=== PATIENT | female | born 1990 ===

== ENCOUNTER 2018-07-25 15:34 | Emergency (ER) | payer OTHER ==
[2018-07-25 15:42] VITALS: BMI 30.1
[2018-07-25 15:43] VITALS: TEMP 98.4; O2SAT 99
[2018-07-25] MEDS ORDERED: Sodium Chloride 0.9% 1,000 ML IV STA (15:53)
--- NOTE | 2018-07-25 15:56 | ED PDOC ---
Arrival/HPI - General Chief Complaint: Abdominal Pain Time Seen by Provider: 07/25/18 15:47 Historian: Patient - History of Present Illness Narrative History of Present Illness (Text): 07/25/18 16:01 27 y/o female with no significant PMH presents to the ED c/o right sided abdominal pain x 2 days. Pain is sharp, constant, located to RUQ and RLQ. Associated 2 episodes of nonbilious, nonbloody emesis. Pt has been taking excedrin for her symptoms, last dose 7am. LMP 2 weeks ago. Denies fever, chills, hematemesis, diarrhea, constipation, saddle anesthesia, incontinence, urinary complaints, vaginal bleeding/discharge/odor, or any other associated complaints. Past Medical History - Provider Review Nursing Documentation Reviewed: Yes - Infectious Disease Hx of Infectious Diseases: None - Reproductive Menopause: No - Psychiatric Hx Substance Use: No - Anesthesia Hx Anesthesia: No Family/Social History - Physician Review Nursing Documentation Reviewed: Yes Family/Social History: No Known Family HX Smoking Status: Former Smoker Hx Alcohol Use: No Hx Substance Use: No Allergies/Home Meds Allergies/Adverse Reactions: Allergies No Known Allergies Allergy (Verified 07/25/18 15:50) Review of Systems - Review of Systems Constitutional: Normal. absent: Fevers Eyes: Normal. absent: Vision Changes ENT: Normal. absent: Sore Throat, Sinus Congestion Respiratory: Normal. absent: SOB, Cough Cardiovascular: Normal. absent: Chest Pain, Palpitations, Syncope Gastrointestinal: Abdominal Pain, Nausea, Vomiting. absent: Stool Changes, Constipation, Diarrhea, Appetite Changes Genitourinary Female: Normal. absent: Dysuria, Frequency, Vaginal Bleeding, Vaginal Discharge Musculoskeletal: Back Pain. absent: Neck Pain Skin: Normal. absent: Rash Neurological: Normal. absent: Headache, Dizziness Physical Exam Vital Signs Reviewed: Yes Vital Signs Temp Pulse Resp BP Pulse Ox 07/25/18 15:42 98.4 F 90 19 142/92 H 99 Temperature: Afebrile Blood Pressure: Hypertensive Pulse: Regular Respiratory Rate: Normal Appearance: Positive for: Well-Appearing, Non-Toxic, Comfortable Pain Distress: None Mental Status: Positive for: Alert and Oriented X 3 - Systems Exam Head: Present: Atraumatic, Normocephalic Extroacular Muscles: Present: EOMI Conjunctiva: Present: Normal Mouth: Present: Moist Mucous Membranes Neck: Present: Normal Range of Motion. No: Meningeal Signs Respiratory/Chest: Present: Clear to Auscultation, Good Air Exchange. No: Respiratory Distress, Accessory Muscle Use Cardiovascular: Present: Regular Rate and Rhythm, Normal S1, S2, Peripheal Pulses Present Abdomen: Present: Tenderness (RUQ, RLQ), Normal Bowel Sounds, Guarding (RUQ), Other ((+) [place] sign). No: Distention, Peritoneal Signs Back: Present: Normal Inspection. No: CVA Tenderness Upper Extremity: Present: Normal Inspection, Normal ROM, NORMAL PULSES, Neurovascularly Intact, Capillary Refill < 2s. No: Cyanosis, Edema, Temperature Abnormalties Lower Extremity: Present: Normal Inspection, NORMAL PULSES, Normal ROM, Neurovascularly Intact, Capillary Refill < 2 s. No: Temperature Abnormalties Neurological: Present: GCS=15, CN II-XII Intact, Speech Normal, Motor Func Grossly Intact, Normal Sensory Function, Gait Normal Skin: Present: Warm, Dry, Normal Color. No: Rashes Psychiatric: Present: Alert, Oriented x 3, Normal Insight, Normal Concentration, Normal Affect, Normal Mood Medical Decision Making ED Course and Treatment: 07/25/18 16:00 Initial Plan: * CBC, CMP * Coags * Mg * Lipase * UA * CT Abd/Pelvis * RUQ US * Transvaginal US * IVF * Toradol * Zofran DDx: Gallbladder disease, Appendicitis, Ovarian Torsion, UTI, Ovarian Cyst Bloodwork reviewed. Mild leukocytosis at 12.5. Otherwise unremarkable. Normal LFTs, normal bilirubin. Urine unremarkable Lipase normal US show right ovarian cyst, fatty liver, and cholelithiasis CT shows cholelithiasis. Patient reports significant improvement in symptoms with medication Case and diagnostic testing results discussed with ED attending Dr. Davis who recommends discharge home with general surgery followup. Advised PMD, BREAST PULLER, and General Surgery followup. Diagnostic testing results and plan of care discussed with patient. Strict instructions given regarding prescription use, importance of followup, and signs/symptoms to return to ER including worsening pain, fever, intractable vomiting, or any other new/worsening symptoms. Pt verbalized understanding of discussion. Patient is A&Ox3, ambulating with steady gait, with vital signs stable for discharge. - Lab Interpretations Lab Results: 07/25/18 16:20 07/25/18 16:20 Lab Results 07/25/18 16:20: Sodium 139, Potassium 3.6, Chloride 106, Carbon Dioxide 25, Anion Gap 11, BUN 15, Creatinine 0.6 L, Est GFR ( Amer) > 60, Est GFR (Non-Af Amer) > 60, Random Glucose 85, Calcium 9.2, Magnesium 1.8, Total Bilirubin 0.3, AST 23, ALT 23, Alkaline Phosphatase 55, Total Protein 7.0, Albumin 4.2, Globulin 2.8, Albumin/Globulin Ratio 1.5, Lipase 117 07/25/18 16:20: Urine Color Yellow, Urine Appearance Slight-cloudy, Urine pH 7.0, Ur Specific Rankin 1.020, Urine Protein Trace H, Urine Glucose (UA) Negative, Urine Ketones Negative, Urine Blood Small H, Urine Nitrate Negative, Urine Bilirubin Negative, Urine Urobilinogen 0.2, Ur Leukocyte Esterase Negative, Urine RBC 1 - 3 H, Urine WBC None, Ur Epithelial Cells 0 - 2, Amorphous Sediment Few 07/25/18 16:20: PT 12.0, INR 1.08, APTT 33.6 07/25/18 16:20: WBC 12.5 H, RBC 5.02, Hgb 15.0, Hct 44.1, MCV 87.8, MCH 29.9, MCHC 34.0, RDW 12.8, Plt Count 279, MPV 9.6, Neut % (Auto) 69.2 H, Lymph % (Auto) 17.4 L, [place] % (Auto) 7.0 H, Eos % (Auto) 6.1 H, Baso % (Auto) 0.3, Lymph # (Auto) 2.2, [place] # (Auto) 0.9 H, Eos # (Auto) 0.8 H, Baso # (Auto) 0.04, Absolute Neuts (auto) 8.65 H I have reviewed the lab results: Yes - RAD Interpretation Narrative RAD Interpretations (Text): 07/25/18 17:55 Transvaginal US: FINDINGS: UTERUS: Measures 8.9 x 4.3 x 5.9 cm. Normal in size and appearance. No fibroid or other mass lesion seen. ENDOMETRIUM: Measures 16 mm in diameter. Unremarkable. CERVIX: No cervical abnormality identified. RIGHT OVARY: Measures 3.6 x 3.4 x 3.4 cm. No solid mass. Normal flow. Simple cyst, 1.6 x 1.8 x 1.9 cm. LEFT OVARY: Measures 1.6 x 2.6 x 2.8 cm. No solid mass. Normal flow. FREE FLUID: There is free fluid noted in the cul-de-sac. OTHER FINDINGS: None. IMPRESSION: 1.9 cm right ovarian cyst presumed physiologic. Small amount of fluid in the cul-de-sac common nonspecific. No additional abnormality. Abdominal US: FINDINGS: LIVER: Measures 17.4 cm. Diffusely increased echogenicity of the liver parenchyma. Consistent with fatty infiltration. No mass. No biliary ductal dilatation. GALLBLADDER: Cholelithiasis. No mural thickening. No pericholecystic fluid. Negative sonographic Reese sign. COMMON BILE DUCT: Measures 6 mm. No stones. No dilatation. PANCREAS: Poorly visualized. RIGHT KIDNEY: Measures 11.1cm. Normal echogenicity. No calculus, mass, or hydronephrosis. LEFT KIDNEY: Measures 11.6cm. Normal echogenicity. No calculus, mass, or hydronephrosis. SPLEEN: Normal in size and contour. No mass. AORTA: No aneurysmal dilatation. IVC: Unremarkable. OTHER FINDINGS: None. IMPRESSION: Cholelithiasis without sonographic evidence of cholecystitis. Fatty infiltration of the liver. CT Abd/Pelvis: FINDINGS: LUNG BASES: The lung bases appear clear. No pleural effusions are seen. LIVER: Unremarkable. GALLBLADDER AND BILE DUCTS: Suggestion of small gallstones in the gallbladder. No gallbladder wall thickening or pericholecystic fluid. PANCREAS: Unremarkable. SPLEEN: Unremarkable. ADRENAL GLANDS: Unremarkable. KIDNEYS, URETERS, AND BLADDER: The kidneys appear within normal limits. There is no hydronephrosis or hydroureter. No urinary calculi are seen. STOMACH AND BOWEL: Unremarkable appearance of the stomach and bowel. No evidence of bowel obstruction. No evidence suggesting enteritis or colitis. APPENDIX: No evidence of acute appendicitis on CT examination. PERITONEUM: No free fluid. No free air. LYMPH NODES: No lymphadenopathy is evident. REPRODUCTIVE: Uterus within normal limits. Right ovarian cyst measuring 3.1 x 2 cm suspected. VASCULATURE: No evidence of abdominal aortic aneurysm. BONES: No aggressive appearing osseous lesion. No acute osseous pathology evident. IMPRESSION: No acute intra-abdominal or pelvic abnormality. Small gallstones suggested. R ight ovarian cyst measuring 3.1 x 2 cm. No suspicious mass or lymphadenopathy. Clinical correlation advised. Electronically signed on July 25, 2018 6:25:10 PM EDT by: Tyler Mac M.D., Certified by [facility], Diagnostic Radiology Summer Internship: Radiologist Disposition/Present on Arrival - Present on Arrival Any Indicators Present on Arrival: No History of DVT/PE: No History of Uncontrolled Diabetes: No Urinary Catheter: No History of Decub. Ulcer: No History Surgical Site Infection Following: None - Disposition Have Diagnosis and Disposition been Completed?: Yes Diagnosis: Biliary colic Disposition: HOME/ ROUTINE Disposition Time: 18:30 Patient Plan: Discharge Condition: IMPROVED Discharge Instructions (ExitCare): Gallstones Additional Instructions: Ibuprofen every 8 hours as needed for pain, take with food Zofran every 8 hours as needed for nausea Increase fluids Rest, no strenuous activity Followup with general surgery within 2 days Followup with gynecology within 2 days Followup with primary within 2 days Return to ER with any new/worsening symptoms Prescriptions: Ibuprofen [Motrin Tab] 600 mg PO Q8 PRN #30 tab PRN Reason: Pain, Moderate (4-7) Ondansetron ODT [Zofran ODT] 4 mg PO Q8 #9 odt Referrals: [facility] [place] [Outside] - [facility] with [facility] [Outside] - Follow up with primary Jonnie Thompson MD [Staff Provider] - Follow up with primary Sebastian Andrews MD [Medical Doctor] - Follow up with primary Shelly Griffith MD [Medical Doctor] - Follow up with primary Forms: [facility] (Uzbek), WORK NOTE
[2018-07-25 17:11] LABS: BASO # 0.04 K/mm3 (0.0-2.0); BASO % 0.3 % (0.0-3.0); EOS # 0.8 (0.0-0.7); EOS % 6.1 % (1.5-5.0); LYMPH # 2.2 (1.2-3.4); LYMPH % 17.4 % (22.0-35.0); MEAN CELL VOLUME 87.8 fl (80.0-105.0); MEAN CORPUSCULAR HEMOGLOBIN 29.9 pg (25.0-35.0); MEAN PLATELET VOLUME 9.6 fl (7.0-11.0); MONO # 0.9 (0.1-0.6); RBC 5.02 10^6/uL (3.5-6.1); RED CELL DISTRIBUTION WIDTH 12.8 % (11.5-14.5); WHITE BLOOD COUNT 12.5 10^3/uL (4.5-11.0)
[2018-07-25 17:13] LABS: URINE BILIRUBIN NEGATIVE (NEGATIVE); URINE BLOOD SMALL (NEGATIVE); URINE GLUCOSE (UA) NEGATIVE (NEGATIVE); URINE LEUKOCYTE ESTERASE NEGATIVE Leu/uL (NEGATIVE); URINE PROTEIN TRACE mg/dL (<30 mg/dL); URINE UROBILINOGEN 0.2 E.U./dL (<1 E.U./dL)
[2018-07-25 17:15] LABS: URINE APPEARANCE SLIGHT-CLOUDY (CLEAR); URINE COLOR YELLOW (YELLOW)
[2018-07-25 17:19] LABS: INR 1.08; PARTIAL THROMBOPLASTIN TIME 33.6 Seconds (26.9-38.3)
[2018-07-25 17:20] LABS: ALB/GLOB RATIO 1.5 (1.1-1.8); ALBUMIN 4.2 g/dL (3.0-4.8); ALT/SGPT 23 U/L (7-56); AST/SGOT 23 U/L (14-36); BLOOD UREA NITROGEN 15 mg/dL (7-21); CALCIUM 9.2 mg/dL (8.4-10.5); GFR NON-AFRICAN AMERICAN > 60; LIPASE 117 U/L (23-300); URINE AMORPHOUS SEDIMENT FEW /hpf; URINE EPITHELIAL CELLS 0 - 2 /hpf (0-5)
[2018-07-25] MEDS ORDERED: Iohexol 350 MG/100 ML VIAL ONE (17:37)
--- NOTE | 2018-07-25 17:53 | US ---
Date of service: 07/25/2018 HISTORY: RLQ pain, back pain, r/o torsion COMPARISON: None available. TECHNIQUE: Transabdominal and transvaginal FINDINGS: UTERUS: Measures 8.9 x 4.3 x 5.9 cm. Normal in size and appearance. No fibroid or other mass lesion seen. ENDOMETRIUM: Measures 16 mm in diameter. Unremarkable. CERVIX: No cervical abnormality identified. RIGHT OVARY: Measures 3.6 x 3.4 x 3.4 cm. No solid mass. Normal flow. Simple cyst, 1.6 x 1.8 x 1.9 cm. LEFT OVARY: Measures 1.6 x 2.6 x 2.8 cm. No solid mass. Normal flow. FREE FLUID: There is free fluid noted in the cul-de-sac. OTHER FINDINGS: None. IMPRESSION: 1.9 cm right ovarian cyst presumed physiologic. Small amount of fluid in the cul-de-sac common nonspecific. No additional abnormality.
--- NOTE | 2018-07-25 18:04 | US ---
Date of service: 07/25/2018 HISTORY: RUQ exam, RUQ pain and tenderness COMPARISON: None. TECHNIQUE: Sonographic evaluation of the abdomen. FINDINGS: LIVER: Measures 17.4 cm. Diffusely increased echogenicity of the liver parenchyma. Consistent with fatty infiltration. No mass. No biliary ductal dilatation. GALLBLADDER: Cholelithiasis. No mural thickening. No pericholecystic fluid. Negative sonographic Reese sign. COMMON BILE DUCT: Measures 6 mm. No stones. No dilatation. PANCREAS: Poorly visualized. RIGHT KIDNEY: Measures 11.1cm. Normal echogenicity. No calculus, mass, or hydronephrosis. LEFT KIDNEY: Measures 11.6cm. Normal echogenicity. No calculus, mass, or hydronephrosis. SPLEEN: Normal in size and contour. No mass. AORTA: No aneurysmal dilatation. IVC: Unremarkable. OTHER FINDINGS: None. IMPRESSION: Cholelithiasis without sonographic evidence of cholecystitis. Fatty infiltration of the liver.
[2018-07-25 18:56] VITALS: BP 171/88; PULSE 80; RESP 18
--- NOTE | 2018-07-26 09:16 | CT ---
Date of service: 07/25/2018 PROCEDURE: CT Abdomen and Pelvis with contrast HISTORY: RLQ abdominal pain COMPARISON: None. TECHNIQUE: Intravenous contrast dose: 100 cc Omnipaque 350 Radiation dose: Total exam DLP = 621.91 mGy-cm. This CT exam was performed using one or more of the following dose reduction techniques: Automated exposure control, adjustment of the mA and/or kV according to patient size, and/or use of iterative reconstruction technique. FINDINGS: LOWER THORAX: Unremarkable. LIVER: Hepatic steatosis. No focal masses. No intrahepatic bile duct dilatation or perihepatic ascites. GALLBLADDER AND BILE DUCTS: Cholelithiasis without CT evidence of acute cholecystitis. PANCREAS: Unremarkable. No gross lesion or ductal dilatation. SPLEEN: Unremarkable. ADRENALS: Unremarkable. No mass. KIDNEYS AND URETERS: Unremarkable. No hydronephrosis. No solid mass. VASCULATURE: Unremarkable. No aortic aneurysm. No atherosclerotic calcification or mural plaque present. BOWEL: Unremarkable. No obstruction. No gross mural thickening. APPENDIX: A normal appendix is visualized in it's entirety. PERITONEUM: Trace free fluid in the cul-de-sac. No free air identified. LYMPH NODES: Unremarkable. No enlarged lymph nodes. BLADDER: Unremarkable. REPRODUCTIVE: Unremarkable uterus. 2.5 cm cyst/follicle right adnexa. BONES: No acute fracture. OTHER FINDINGS: None. IMPRESSION: Cholelithiasis without CT evidence of acute cholecystitis. Simple cyst right adnexa. Trace free fluid identified in the pelvis/cul de sac. Additional benign and/or incidental findings described above. Concordant results (preliminary interpretation) provided by [employer]. Procedure Completed: 17:49. Preliminary Report: Interpreted and electronically signed: 18:25. Final Interpretation: 09:13. July 26, 2018.
--- NOTE | 2018-07-26 11:46 | RAD ---
Date of service: 07/25/2018 HISTORY: Unspecified abdominal pain. COMPARISON: None. FINDINGS: LUNGS: No active pulmonary disease. PLEURA: No significant pleural effusion identified, no pneumothorax apparent. CARDIOVASCULAR: No atherosclerotic calcification present Normal. OSSEOUS STRUCTURES: No significant abnormalities. VISUALIZED UPPER ABDOMEN: Normal. OTHER FINDINGS: None. IMPRESSION: No active disease.
== END 2018-07-25 18:56 | disposition home or self-care (01) ==
LOC: ED 15:34
DX: K80.50 Calculus of bile duct without cholangitis or cholecystitis without obstruction (principal); Z87.891 Personal history of nicotine dependence
CPT/HCPCS: 71045; 74177; 76700; 76830; 80053; 81001; 81025; 83690; 83735; 85025; 85610; 85730; 96361; 96374; 96375; 99284; J1885; J2405; J7030; Q9967

== ENCOUNTER 2018-08-06 07:12 | Day surgery (SDC) | payer OTHER ==
[2018-08-06 08:15] LABS: ALB/GLOB RATIO 1.5 (1.1-1.8); ALBUMIN 4.2 g/dL (3.0-4.8); BILIRUBIN,DIRECT 0.2 mg/dL (0.0-0.4)
[2018-08-06] MEDS ORDERED: Propofol 10 mg/ml Inj (20 ML) ONE (09:45)
[2018-08-06] MEDS ORDERED: Rocuronium 10 mg/ml (5 ml) ONE ×2 (09:46→10:50)
[2018-08-06] MEDS ORDERED: Midazolam 2 MG/2 ML VIAL ONE (09:46)
[2018-08-06] MEDS ORDERED: Iohexol 240 (50 ml) ONE (09:57)
[2018-08-06] MEDS ORDERED: Bupivacaine 0.5% 50 ML IJ ONE ×3 (09:57→10:20)
[2018-08-06] MEDS ORDERED: Esmolol 100 mg/10ml Inj IV ONE (09:58)
[2018-08-06] MEDS ORDERED: CeFAZolin 1 gm in NS 100ml IVPB ONE (10:15)
[2018-08-06] MEDS ORDERED: Glycopyrrolate 0.2 mg/ml (2ml vial) ONE (11:31)
[2018-08-06] MEDS ORDERED: Oxycodone/Acetaminophen 5/325 mg Tab PO PRN (11:39)
[2018-08-06] MEDS ORDERED: HYDROmorphone 0.5 mg/0.5 ml ISec IVP PRN (11:39)
--- NOTE | 2018-08-06 11:39 | PCM.SURG1 ---
Surgeon's Initial Post Op Note - Surgeon's Notes Surgeon: MD Sorin Transmission Calibration Engineer: Andrews, PGY3. Jatinder, PGY4 Pre-Operative Diagnosis: Symptomatic Cholelithiasis Operative Findings: Gallstones Post-Operative Diagnosis: Symptomatic Cholelithiasis Operation Performed: Laparoscopic Cholecystectomy, Attempted IOC Specimen/Specimens Removed: gallbladder Estimated Blood Loss: EBL {In ML}: 20 Date of Surgery/Procedure: 08/06/18 Time of Surgery/Procedure: 10:30
[2018-08-06] MEDS ORDERED: Lactated Ringer's 1,000 ML IV SCH (11:45)
[2018-08-06] MEDS ORDERED: HYDROmorphone 0.5 mg/0.5 ml ISec IVP ONE ×2 (11:58→12:23)
[2018-08-06] MEDS ORDERED: HYDROmorphone 0.5 mg/0.5 ml ISec ONE ×2 (12:01→12:24)
[2018-08-06 12:26] VITALS: RESP 16
[2018-08-06 12:59] VITALS: TEMP 98.3
[2018-08-06 13:32] VITALS: BP 154/59; PULSE 101; O2SAT 96
--- NOTE | 2018-08-06 22:49 | OP ---
PROCEDURE DATE: 08/06/2018 PREOPERATIVE DIAGNOSIS: Symptomatic cholelithiasis. POSTOPERATIVE DIAGNOSIS: Symptomatic cholelithiasis. OPERATION PERFORMED: Laparoscopic cholecystectomy with attempted intraoperative cholangiogram. SURGEON: Tavon Rowell MD ASSISTANTS: Mark Sparrow, PGY-3; Reagan Tobias, PGY-4 ANESTHESIOLOGIST: Dr. Burgess. ANESTHESIA: General. ESTIMATED BLOOD LOSS: 20 mL. DESCRIPTION OF PATIENT: This is a 27-year-old female with 2-week history of right upper quadrant pain. Pain started 2 weeks ago. This was the first time her having the pain. It was associated with nausea and vomiting. She came to the emergency department at the time on 07/25/2018 and was found to have cholelithiasis which was the cause of her pain. She is here today for a same day surgery for gallbladder removal. DESCRIPTION OF PROCEDURE: Upon sedation and intubation, the patient's abdomen was prepped and draped in the usual sterile fashion. Supraumbilical incision was made and a Veress needle was used to enter the abdomen with entering pressures of 2. Upon insufflation of the abdomen, trocar was placed through the supraumbilical incision using a Visiport technique. Upon entering the intraabdominal space, 2 more trocars were placed, one subxiphoidly, one on the right subcostally, both 5 mm in size. Visualization of the gallbladder was done and it was noted that gallstones were inside the gallbladder. The patient had cholelithiasis. Dissection was done in the triangle of [place] in order to be able to skeletonize the cystic duct. Skeletonization of the cystic duct was done without any problems. Care was now taken to the cystic artery, which was also skeletonized using a laparoscopic [place]. A clip was placed very proximally on the cystic duct near the gallbladder. Scissors were used to incise into the cystic duct and cholangiogram catheter was attempted to be placed. Attempts of placement to the gallbladder was about 4-5 times and then was aborted. Clip was placed distally on the cystic duct and scissors were used to transect the cystic duct. Clip was placed on the cystic artery proximally and distally and transection was also done at the cystic artery. Using electrocautery with a laparoscopic hook, the gallbladder was dissected off the gallbladder bed without any complications. Upon removing the gallbladder from the gallbladder bed, the liver bed was irrigated and suctioned until clear fluid was seen coming out of the suction tube and all bile and any blood was removed with suction and irrigation. The specimen was removed via the supraumbilical incision and was sent to the pathology. Last look at the intraabdominal space was done and it was noted that there was no bleeding and trocars were now removed from the abdomen. The supraumbilical incision fascia was closed using Vicryl sutures in a [id number] stitch and the three skin incisions were closed with 4-0 Monocryl. Dressing used was Dermabond. The patient was now awakened from anesthesia and taken to the postanesthesia care unit without any complications. Estimated blood loss was 20 mL. Mark Sparrow DO Tavon Rowell MD
== END 2018-08-06 16:30 | disposition home or self-care (01) ==
LOC: SDS 07:12
PROVIDERS: ATTEND Surgery
DX: K80.10 Calculus of gallbladder with chronic cholecystitis without obstruction (principal)
CPT/HCPCS: 36415; 47562; 80076; 82150; 84703; 88304; J0131; J0690; J1170; J2250; J2405; J2704; J2765; J3010; J7120 ×2; Q9966